=== PATIENT | male | born 2000 | race Caucasian/White ===

== ENCOUNTER 2021-04-06 21:43 | Emergency (ER) | payer OTHER, SELFPAY ==
--- NOTE | ~2021-04-06 | XR_ITS ---
EXAMINATION: XR chest 1V portable DATE: 04/06/2021 23:34 INDICATION: Tachycardia. TECHNIQUE: frontal view of the chest was obtained. COMPARISON: None FINDINGS: The lungs are clear with no focal airspace opacities, pulmonary edema, pleural effusion or pneumothor ax. The cardiomediastinal silhouette is normal. Mild thoracic levocurvature. IMPRESSION: 1. No acute cardiopulmonary disease. Reviewed, dictated and finalized at location A.
--- NOTE | 2021-04-06 21:45 | ECG_ITS ---
Measurements Intervals [place] Rate: 114 P: 74 CA: 124 QRS: 97 QRSD: 92 T: 22 QT: 310 QTc: 427 Interpretive Statements SINUS TACHYCARDIA POSSIBLE LEFT ATRIAL ENLARGEMENT RIGHT AXIS DEVIATION INCOMPLETE RIGHT BUNDLE BRANCH BLOCK DELAYED PRECORDIAL R/S TRANSITION BORDERLINE T WAVE ABNORMALITY- INFERIOR LEADS ABNORMAL ECG Electronically Signed On 04-07-2021 7:20:59 CDT by Jason Fleming D.O.
[2021-04-06 21:46] VITALS: BP 155/104; PULSE 113; RESP 18; TEMP 37.9; O2SAT 99
--- NOTE | 2021-04-06 22:06 | ED.ARRPALP ---
HPI - Arrhythmia/Palpitations General Chief Complaint: Arrhythmia/Palpitations Stated Complaint: chest pain Time Seen by Provider: 04/06/21 22:01 Source: patient Mode of arrival: EMS (with PD) Limitations: no limitations History of Present Illness HPI narrative: This is a 21 year old male who presents for evaluation of palpitations. Patient states approximately 1 hour ago he smoked concentrated THC. Afterwards, he developed heart racing, arm tingling and intermittent thud in his chest . He denies chest pain, shortness of breath, nausea, vomiting, cough, sore throat or runny nose. He denies any other drug use and he denies alcohol use tonight. He states this is not his first time using this concentrated THC. Related Data Allergies Allergy/AdvReac Type Severity Reaction Status Date / Time No Known Allergies Allergy Unverified 07/02/15 14:29 Review of Systems Review of Systems: All systems reviewed & are unremarkable except as noted in HPI and below PMFSH Past Medical History Medical History (Updated 04/07/21 @ 00:02 by Edwige Snider MD) Patient denies medical problems Surgical History Surgical History (Updated 04/06/21 @ 22:09 by Edwige Snider MD) No pertinent past surgical history Social History Social History (Updated 04/06/21 @ 22:10 by Edwige Snider MD) Smoking status: Never smoker Alcohol intake: former Substance use type: marijuana Exam Const: General: no acute distress and alert Orientation/consciousness: patient oriented x3 Eyes: EOM: EOMs intact bilaterally Chest: Chest palpation & inspection: normal inspection of the chest Resp: Effort & Inspection: normal respiratory effort and no retractions Auscultation: clear to auscultation bilaterally Cardio: Rate: tachycardic Rhythm: regular rhythm Heart sounds: no murmurs GI: GI Palp: Yes Soft to palpation, No Tenderness to palpation present (GI) and No Guarding due to palpation present (GI) Auscultation: normal bowel sounds Skin: General skin exam: normal color Rashes: no rashes Neuro: General: patient oriented x3, moves all extremities and CN's II-XI intact bilaterally Psych: Mental Status: mental status grossly normal Affect: normal affect Course Reevaluation(s) Reevaluation #1: PAtient reports to nursing staff that he feels better. THis seems due to reaction to concentrated THC. I have not found an infection. elevated wbc likely due to stress reaction. Date: 04/06/21 Time: 23:59 Vital Signs Vital signs: Vital Signs Temperature 100.2 F H 04/06/21 21:46 Pulse Rate 113 H 04/06/21 21:46 Respiratory Rate 18 04/06/21 21:46 Blood Pressure 155/104 H 04/06/21 21:46 Pulse Oximetry 99 04/06/21 21:46 Temperature 100.2 F H 04/06/21 21:46 Pulse Rate 88 04/06/21 23:15 Respiratory Rate 12 04/06/21 23:15 Blood Pressure 136/77 04/06/21 23:15 Pulse Oximetry 99 04/06/21 23:15 MDM - Arrhythmia/Palpitations Lab Data Attestation: I reviewed the patient's lab results. Result diagrams: 04/06/21 22:34 04/06/21 22:34 Labs: Lab Results 04/06/21 04/06/21 04/06/21 Range/Units 22:34 22:34 22:34 WBC 13.1 H (4.5-10.0) K/mm3 RBC 5.07 (4.6-6.20) M/mm3 Hgb 16.2 (14.0-18.0) g/dL Hct 46.9 (42.0-52.0) % MCV 92.5 (80-100) fl MCH 32.0 (26-34) pg MCHC 34.5 (32-36) g/dl RDW 11.9 (11.5-14.5) % Plt Count 268 (150-375) k/mm3 MPV 10.3 (7.4-10.4) fl Immature Gran % (Auto) 0.4 (0-0.5) % Neut % (Auto) 85.8 H (45.5-73.1) % Lymph % (Auto) 6.0 L (18.3-44.2) % [place] % (Auto) 7.4 (2.6-8.5) % Eos % (Auto) 0.0 (0-4.4) % Baso % (Auto) 0.4 (0.2-1.2) % Lymph # (Auto) 0.79 L (0.9-3.2) K/mm3 [place] # (Auto) 1.0 H (0.1-0.6) K/mm3 Eos # (Auto) 0.0 (0-0.3) K/mm3 Baso # (Auto) 0.1 (0.0-0.1) K/mm3 Abs Immat Gran (auto) 0.05 H (0.00-0.031) K/mm3 Absolute Neuts (auto) 11.3 H (1.3-6.7)
[2021-04-06] MEDS: SODIUM CHLORIDE 0.9% IV 1,000 ML 999 ML IV CONT (22:50)
--- NOTE | 2021-04-06 22:58 | PC.NURSE ---
pt states he isnt feeling anxious anymore, refused ativan. pt calm in bed, officer at bedside.
[2021-04-06 23:04] LABS: Basophils Absolute Auto 0.1 K/mm3 (0.0-0.1); Basophils Percent Auto 0.4 % (0.2-1.2); Hematocrit 46.9 % (42.0-52.0); Hemoglobin 16.2 g/dL (14.0-18.0); Immature Granulocyte Absolute 0.05 K/mm3 (0.00-0.031); Immature Granulocyte Percent A 0.4 % (0-0.5); Lymphocytes Absolute Auto 0.79 K/mm3 (0.9-3.2); Mean Corpuscular HGB Conc 34.5 g/dl (32-36); Mean Corpuscular Volume 92.5 fl (80-100); Mean Platelet Volume 10.3 fl (7.4-10.4); Monocytes Percent Auto 7.4 % (2.6-8.5); Neutrophils Absolute Auto 11.3 K/mm3 (1.3-6.7); Neutrophils Percent Auto 85.8 % (45.5-73.1); Platelet Count Result 268 k/mm3 (150-375); Red Blood Count 5.07 M/mm3 (4.6-6.20); Red Cell Distribution Width 11.9 % (11.5-14.5); White Blood Count 13.1 K/mm3 (4.5-10.0)
[2021-04-06 23:13] LABS: Add Urine Microscopic? YES; Appearance Urine Clear (Clear); Bilirubin Urine Negative (Negative); Blood Urine Negative (Negative); Color Urine Yellow (Yellow); Glucose Urine UA Negative (Negative); Ketones Urine Negative (Negative); Leukocyte Esterase Ur Negative LEU/UL (Negative); Mucus Urine Rare /lpf; Nitrate Urine Negative (Negative); Protein Urine Negative (Negative); Specific Grav Ur 1.026 (1.001-1.035); WBC Urine 0-3 /hpf
[2021-04-06 23:13] LABS: Anion Gap 11 mmol/L (8-16); Blood Urea Nitrogen 17 mg/dL (9-20); Calcium 9.8 mg/dL (8.4-10.2); Carbon Dioxide 26 mmol/L (22-30); Chloride 101 mmol/L (98-107); Estimated CRCL calculation 93 ml/min; Estimated Glomerular Filt Rate > 60; Glucose 139 mg/dL (65-110); Potassium 3.6 mmol/L (3.4-5.0); Sodium 138 mmol/L (137-145)
[2021-04-06 23:15] VITALS: BP 136/77; PULSE 88; RESP 12; O2SAT 99
[2021-04-06 23:18] LABS: Ethanol < 10 mg/dL (<10)
[2021-04-06 23:19] LABS: Barbiturate Screen Urine Negative (Negative); Benzodiazepines Screen Urine Negative (Negative)
[2021-04-06 23:34] LABS: Amphetamine Screen Urine Negative (Negative); Cannabinoid Screen Urine Positive (Negative); Cocaine Screen Urine Negative (Negative); Methadone Screen Urine Negative (Negative); Opiate Screen Urine Negative (Negative); Phencyclidine Screen Urine Negative (Negative)
[2021-04-06 23:34] LABS: Troponin I < 0.012 ng/mL (0.000-0.034)
[2021-04-06 23:39] LABS: Partial Thromboplastin Time 25.4 SECONDS (22.3-36.8)
[2021-04-07 00:14] LABS: INR 1.2; Prothrombin Time 15.1 Seconds (11.1-14.7)
[2021-04-07 00:21] VITALS: BP 124/74; PULSE 80; RESP 17; O2SAT 99
== END 2021-04-07 00:23 ==
PROVIDERS: Emergency Medicine; Emergency Provider General Practice
DX: T40.7X1A Poisoning by cannabis (derivatives), accidental (unintentional), initial encounter (principal); R00.2 Palpitations; R00.0 Tachycardia, unspecified; R94.31 Abnormal electrocardiogram [ECG] [EKG]; I45.10 Unspecified right bundle-branch block
CPT/HCPCS: 36415; 71045; 80048; 80307; 81001; 84484; 85025; 85610; 85730; 93005; 96360; 99284; J7030